=== PATIENT | female | born 1985 | race Caucasian/White ===

== ENCOUNTER → 2023-11-25 11:31 | Outpatient (REF) | payer OTHER, SELFPAY | LOC: HWEVLT 11:31 | PROVIDERS: ATTENDING PHYSICIAN Radiology Diagnostic Radiology | DX: I83.892 Varicose veins of left lower extremity with other complications (principal) | CPT/HCPCS: 93971 ==

== ENCOUNTER → 2024-01-14 14:41 | Outpatient (REF) | payer OTHER, SELFPAY | LOC: HWEVLT 14:41 | PROVIDERS: ATTENDING PHYSICIAN Radiology Diagnostic Radiology | DX: I83.892 Varicose veins of left lower extremity with other complications (principal) | CPT/HCPCS: 36471 ==

== ENCOUNTER → 2024-11-07 15:56 | Outpatient (REF) | payer OTHER, SELFPAY ==
[2024-11-11 21:43] LABS: HPV, High Risk Not Detected; HPV, High Risk Source Cervical
[2024-11-12 07:44] LABS: Chlamydia trachomatis,ThinPrep Negative (Negative); Neisseria gonorrhoeae,ThinPrep Negative (Negative); Specimen Source Cervical
== END ==
LOC: CPAP 15:56
PROVIDERS: ATTENDING PHYSICIAN Nurse Practitioner Family
DX: Z34.91 Encounter for supervision of normal pregnancy, unspecified, first trimester (principal)
CPT/HCPCS: 87491; 87591; 87624

== ENCOUNTER → 2024-12-22 08:10 | Outpatient (REF) | payer OTHER, SELFPAY | LOC: PNTC 08:10 | PROVIDERS: ATTENDING PHYSICIAN Obstetrics & Gynecology | DX: Z36.0 Encounter for antenatal screening for chromosomal anomalies (principal); Z36.82 Encounter for antenatal screening for nuchal translucency | CPT/HCPCS: 76801; 76813 ==

== ENCOUNTER → 2025-02-14 15:48 | Outpatient (REF) | payer OTHER, SELFPAY | LOC: PNTC 15:48 | PROVIDERS: ATTENDING PHYSICIAN Obstetrics & Gynecology | DX: O09.529 Supervision of elderly multigravida, unspecified trimester (principal) | CPT/HCPCS: 76811; 76817 ==

== ENCOUNTER → 2025-02-23 14:50 | Outpatient (REF) | payer OTHER, SELFPAY | LOC: WDC 14:50 | PROVIDERS: ATTENDING PHYSICIAN Surgery; FAMILY PHYSICIAN Nurse Practitioner Adult Health | DX: N64.9 Disorder of breast, unspecified (principal) | CPT/HCPCS: 76642 ==

== ENCOUNTER → 2025-03-13 13:22 | Outpatient (REF) | payer OTHER, SELFPAY | LOC: PNTC 13:22 | PROVIDERS: ATTENDING PHYSICIAN Obstetrics & Gynecology | DX: O09.529 Supervision of elderly multigravida, unspecified trimester (principal); O20.8 Other hemorrhage in early pregnancy | CPT/HCPCS: 76816 ==

== ENCOUNTER → 2025-04-17 07:26 | Outpatient (REF) | payer OTHER, SELFPAY | LOC: PNTC 07:26 | PROVIDERS: ATTENDING PHYSICIAN Obstetrics & Gynecology | DX: O09.529 Supervision of elderly multigravida, unspecified trimester (principal); O41.8X90 Other specified disorders of amniotic fluid and membranes, unspecified trimester, not applicable or unspecified | CPT/HCPCS: 76816 ==

== ENCOUNTER → 2025-05-22 15:49 | Outpatient (REF) | payer OTHER, SELFPAY | LOC: PNTC 15:49 | PROVIDERS: ATTENDING PHYSICIAN Obstetrics & Gynecology | DX: O09.529 Supervision of elderly multigravida, unspecified trimester (principal); O46.8X9 Other antepartum hemorrhage, unspecified trimester | CPT/HCPCS: 59025; 76816 ==

== ENCOUNTER → 2025-05-29 15:53 | Outpatient (REF) | payer OTHER, SELFPAY | LOC: PNTC 15:53 | PROVIDERS: ATTENDING PHYSICIAN Obstetrics & Gynecology | DX: O09.529 Supervision of elderly multigravida, unspecified trimester (principal); O46.90 Antepartum hemorrhage, unspecified, unspecified trimester | CPT/HCPCS: 59025; 76815 ==

== ENCOUNTER → 2025-06-05 16:00 | Outpatient (REF) | payer OTHER, SELFPAY | LOC: PNTC 16:00 | PROVIDERS: ATTENDING PHYSICIAN Obstetrics & Gynecology | DX: O09.529 Supervision of elderly multigravida, unspecified trimester (principal); O46.90 Antepartum hemorrhage, unspecified, unspecified trimester | CPT/HCPCS: 59025; 76815 ==

== ENCOUNTER → 2025-06-13 15:21 | Outpatient (REF) | payer OTHER, SELFPAY | LOC: PNTC 15:21 | PROVIDERS: ATTENDING PHYSICIAN Obstetrics & Gynecology | DX: O09.523 Supervision of elderly multigravida, third trimester (principal); O46.93 Antepartum hemorrhage, unspecified, third trimester | CPT/HCPCS: 59025; 76815 ==

== ENCOUNTER → 2025-06-19 15:47 | Outpatient (REF) | payer OTHER, SELFPAY | LOC: PNTC 15:47 | PROVIDERS: ATTENDING PHYSICIAN Obstetrics & Gynecology | DX: O09.523 Supervision of elderly multigravida, third trimester (principal); O46.93 Antepartum hemorrhage, unspecified, third trimester | CPT/HCPCS: 36415; 59025; 76816 ==

== ENCOUNTER → 2025-06-26 16:02 | Outpatient (REF) | payer OTHER, SELFPAY | LOC: PNTC 16:02 | PROVIDERS: ATTENDING PHYSICIAN Obstetrics & Gynecology | DX: O09.523 Supervision of elderly multigravida, third trimester (principal); O46.93 Antepartum hemorrhage, unspecified, third trimester | CPT/HCPCS: 59025; 76815 ==

== ENCOUNTER 2025-07-02 19:29 | Inpatient (IN) | payer OTHER, SELFPAY ==
[2025-07-02 19:35] VITALS: BMI 23.6
[2025-07-02 20:22] LABS: Hematocrit 33.2 % (37.0-47.0); Hemoglobin 11.4 g/dL (12.0-16.0); Mean Corp Hgb Conc. 34.3 g/dL (33.0-37.0); Mean Corpuscular Volume 86.0 fL (81.0-99.0); Nucleated Red Blood Cells % 0 %; Platelet Count 190 10^3/uL (130-400); Red Cell Dist. Width 13.5 % (11.5-14.5)
[2025-07-02] MEDS: CYTOTEC 25 MICROGRAM VAG (20:25)
[2025-07-02 20:58] VITALS: BP 121/78
[2025-07-03] MEDS: CYTOTEC 50 MICROGRAM PO ×2 (00:29→04:57)
[2025-07-03] MEDS: LR 1000 IV (06:48)
[2025-07-03] MEDS: CYTOTEC PO (20:50)
[2025-07-03] MEDS: STADOL 1 MG IV (21:03)
[2025-07-04] MEDS: LR 1000 IV ×2 (00:05→02:20)
[2025-07-04] MEDS: FENTANYL/BUPIVACAINE 100 EPIDURAL (00:21)
[2025-07-04] MEDS: SUBLIMAZE 100 MCG EPIDURAL (00:21)
[2025-07-04] MEDS: PITOCIN 30 UNITS/NSS 500 ML IV (02:17)
[2025-07-04] MEDS: ZOFRAN 4 MG IV (02:54)
[2025-07-04] MEDS: COLACE PO (13:50)
[2025-07-04] MEDS: CYTOTEC PO ×3 (13:51)
[2025-07-04] MEDS: PRENATAL PLUS 1 TABLET PO (14:28)
[2025-07-04] MEDS: MOTRIN 600 MG PO (15:21)
[2025-07-04] MEDS: COLACE 100 MG PO (20:28)
--- NOTE | 2025-07-05 02:30 | DOWNTIME ---
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 Downtime documentation of patient's care, including medication administrations, has been reconciled in the electronic record per guidelines. Refer to the
patient's paper chart under the miscellaneous tab to see printed paper medication records and downtime forms.
[2025-07-05 05:34] LABS: Hematocrit 31.4 % (37.0-47.0); Hemoglobin 10.7 g/dL (12.0-16.0)
[2025-07-05] MEDS: MOTRIN 600 MG PO (06:13)
[2025-07-05] MEDS: PRENATAL PLUS 1 TABLET PO (08:20)
[2025-07-05] MEDS: COLACE 100 MG PO ×2 (08:20→20:07)
[2025-07-06] MEDS: COLACE 100 MG PO (08:11)
[2025-07-06] MEDS: PRENATAL PLUS 1 TABLET PO (08:11)
[2025-07-06] MEDS: FEOSOL 325 MG PO (08:11)
[2025-07-07 13:33] LABS: Syphilis/T. pallidum Ab Reflex Negative (Negative)
== END 2025-07-06 11:39 | disposition home or self-care (01) | DRG 807 ==
LOC: LDRP 19:29
PROVIDERS: Obstetrics & Gynecology; ADMITTING PHYSICIAN Student in an Organized Health Care Education/Training Program
PROC: 3E0P7VZ Introduction of Hormone into Female Reproductive, Via Natural or Artificial Opening (ICD-10-PCS; 2025-07-03)
PROC: 10907ZC Drainage of Amniotic Fluid, Therapeutic from Products of Conception, Via Natural or Artificial Opening (ICD-10-PCS; 2025-07-03)
PROC: 10E0XZZ Delivery of Products of Conception, External Approach (ICD-10-PCS; 2025-07-04)
PROC: 0KQM0ZZ Repair Perineum Muscle, Open Approach (ICD-10-PCS; 2025-07-04)
DX: O48.0 Post-term pregnancy (principal); Z37.0 Single live birth; Z3A.40 40 weeks gestation of pregnancy; O70.1 Second degree perineal laceration during delivery
CPT/HCPCS: 36415; 85014; 85018; 85025; 86780; 86850; 86900; 86901